=== PATIENT | female | born 1945 | race Two or more races ===

== ENCOUNTER 2022-02-15 07:33 | Inpatient (IN) | payer MEDICARE, MEDICAID ==
[~2022-02-15] VITALS: Ht 162.6 cm; Wt 90.5 kg
[2022-02-15] MEDS ORDERED: ONDANSETRON HCL 4 MG/2 ML VIAL IV ONE (09:00)
[2022-02-15] MEDS ORDERED: MORPHINE SULFATE INJ 2 MG/ml SYRG IV ONE (09:00)
[2022-02-15 10:04] LABS: Basophils # (auto) 0 10 ^3/uL (0-0.2); Basophils % (auto) 0.4 % (0.0-2.0); Eosinophils # (auto) 0.1 10 ^3/uL (0-0.8); Eosinophils % (auto) 1.4 % (0.0-7.0); Hematocrit 42.5 % (36.0-46.0); Hemoglobin 13.8 g/dL (12.2-16.2); Lymphocytes # (auto) 1.5 10 ^3/uL (0.4-5.4); Lymphocytes % (auto) 19.9 % (10.0-50.0); Mean Corpuscular Hemoglobin 28.5 pg (28.0-32.0); Mean Corpuscular Hgb Conc. 32.4 g/dL (32.0-36.0); Monocytes # (auto) 0.6 10 ^3/uL (0-1.3); Monocytes % (auto) 7.8 % (0.0-12.0); Neutrophils # (auto) 5.2 10 ^3/uL (1.6-8.6); Neutrophils % (auto) 70.5 % (37.0-80.0); Red Blood Cells 4.83 10^6/uL (4.0-5.20); Red Cell Distribution Width 15.3 % (11.8-14.3); White Blood Cell 7.4 10^3/uL (4.4-10.8)
[2022-02-15 10:11] LABS: Albumin 3.6 g/dL (3.4-5.0); Calcium 8.3 mg/dL (8.5-10.1); Potassium 4.8 mmol/L (3.5-5.1)
[2022-02-15 10:14] LABS: BUN/Creatinine Ratio 24.7; Bilirubin, Total 0.3 mg/dL (0.2-1.0); Total Protein 6.3 g/dL (6.4-8.2)
[2022-02-15 10:17] LABS: INR 0.9 (0.9-1.15); Partial Thromboplastin Time 25.7 sec (24.6-33.4)
[2022-02-15] MEDS ORDERED: ONDANSETRON HCL 4 MG/2 ML VIAL ONE (10:19)
[2022-02-15] MEDS ORDERED: MORPHINE SULFATE INJ 2 MG/ml SYRG ONE (10:19)
[2022-02-15 14:22] LABS: Urine Bacteria NONE SEEN /hpf (None Seen); Urine Blood 1+ /uL (Negative); Urine Mucus FEW (None Seen); Urine Specific Gravity 1.016 (1.001-1.035); Urine WBC 1 /hpf (0 - 5)
[2022-02-15] MEDS ORDERED: METO-289 PO (15:16)
[2022-02-15] MEDS ORDERED: AMIT25TA12 PO (15:16)
[2022-02-15] MEDS ORDERED: ACET300T4 PO (15:16)
[2022-02-15] MEDS ORDERED: HYDR-4188 PO (15:16)
[2022-02-15] MEDS ORDERED: LEVO50TA7 PO (15:16)
[2022-02-15] MEDS ORDERED: ALEN70TA74 PO (15:16)
[2022-02-15] MEDS ORDERED: AMLO-489 PO (15:16)
[2022-02-15] MEDS ORDERED: CHOL20007 PO (15:16)
[2022-02-15] MEDS ORDERED: FLUO-125 PO (15:16)
[2022-02-15] MEDS ORDERED: LEFL20TA PO (15:16)
[2022-02-15] MEDS ORDERED: ASPI-543 PO (15:16)
[2022-02-15] MEDS ORDERED: DOCUSATE SOD 100 MG CAP PO PRN (15:30)
[2022-02-15] MEDS: SODIUM CHLORIDE 0.9% 1,000 ML IV SCH (16:11)
[2022-02-15] MEDS: MORPHINE SULFATE INJ 2 MG/ml SYRG IV PRN ×2 (16:38→23:28)
[2022-02-15] MEDS: ONDANSETRON HCL 4 MG/2 ML VIAL IV PRN ×2 (16:38→23:25)
[2022-02-15 18:57] LABS: Cholesterol 184 mg/dL (< 200)
[2022-02-15 18:59] LABS: HDL Cholesterol 63 mg/dL (40-59); LDL Cholesterol 106 mg/dL (< 100); Triglycerides 126 mg/dL (< 150)
[2022-02-16 04:48] LABS: Basophils # (auto) 0.1 10 ^3/uL (0-0.2); Basophils % (auto) 0.9 % (0.0-2.0); Eosinophils # (auto) 0.1 10 ^3/uL (0-0.8); Hematocrit 40.1 % (36.0-46.0); Hemoglobin 13.4 g/dL (12.2-16.2); Lymphocytes # (auto) 1.4 10 ^3/uL (0.4-5.4); Lymphocytes % (auto) 19.1 % (10.0-50.0); Mean Corpuscular Hemoglobin 29.3 pg (28.0-32.0); Mean Corpuscular Hgb Conc. 33.4 g/dL (32.0-36.0); Mean Corpuscular Volume 87.8 fL (80.0-100.0); Monocytes # (auto) 0.6 10 ^3/uL (0-1.3); Monocytes % (auto) 8.1 % (0.0-12.0); Neutrophils % (auto) 70.9 % (37.0-80.0); Nucleated Red Blood Cells % 0.1 %; Red Blood Cells 4.57 10^6/uL (4.0-5.20); Red Cell Distribution Width 14.8 % (11.8-14.3); White Blood Cell 7.1 10^3/uL (4.4-10.8)
[2022-02-16 05:14] LABS: Potassium 4.3 mmol/L (3.5-5.1)
[2022-02-16 05:19] LABS: Albumin 3.5 g/dL (3.4-5.0); BUN/Creatinine Ratio 31.5; Bilirubin, Total 0.6 mg/dL (0.2-1.0); Calcium 7.5 mg/dL (8.5-10.1); Magnesium 2.3 mg/dL (1.6-2.6); Phosphorus 2.6 mg/dL (2.5-4.90); Total Protein 6.2 g/dL (6.4-8.2)
[2022-02-16] MEDS ORDERED: MORPHINE SULFATE 4 MG/ML SYR/VIAL ONE (05:37)
[2022-02-16] MEDS: ONDANSETRON HCL 4 MG/2 ML VIAL IV PRN ×3 (05:38→17:15)
[2022-02-16] MEDS: MORPHINE SULFATE INJ 2 MG/ml SYRG IV PRN ×3 (05:42→17:15)
[2022-02-16] MEDS: SODIUM CHLORIDE 0.9% 1,000 ML IV SCH (08:18)
[2022-02-16] MEDS ORDERED: PANTOPRAZOLE 40 MG TAB PO SCH (10:00)
[2022-02-16] MEDS ORDERED: ENOXAPARIN SOD 40 MG/0.4 ML SYRINGE SC SCH (10:00)
[2022-02-16] MEDS: KETOROLAC TROMETH 30 MG/ML 1ML VIAL IV PRN ×2 (13:33→22:12)
[2022-02-16] MEDS: hydrOXYchloroQUINE SULFATE 200 MG TAB PO SCH (18:00)
[2022-02-16 22:00] VITALS: BP 122/63
[2022-02-16] MEDS: AMITRIPTYLINE HCL 25 MG TAB PO SCH (22:12)
[2022-02-17] VITALS (14 sets, daily range): BP systolic 106–145; BP diastolic 63–111
[2022-02-17] MEDS: SODIUM CHLORIDE 0.9% 1,000 ML IV SCH (02:06)
[2022-02-17] MEDS: KETOROLAC TROMETH 30 MG/ML 1ML VIAL IV PRN (05:08)
[2022-02-17 06:35] LABS: Basophils # (auto) 0 10 ^3/uL (0-0.2); Basophils % (auto) 0.4 % (0.0-2.0); Eosinophils # (auto) 0.1 10 ^3/uL (0-0.8); Eosinophils % (auto) 1.5 % (0.0-7.0); Hematocrit 38.4 % (36.0-46.0); Hemoglobin 12.7 g/dL (12.2-16.2); Lymphocytes # (auto) 1.1 10 ^3/uL (0.4-5.4); Lymphocytes % (auto) 17.6 % (10.0-50.0); Mean Corpuscular Hemoglobin 29.2 pg (28.0-32.0); Mean Corpuscular Volume 88.4 fL (80.0-100.0); Monocytes # (auto) 0.6 10 ^3/uL (0-1.3); Monocytes % (auto) 10.4 % (0.0-12.0); Neutrophils # (auto) 4.4 10 ^3/uL (1.6-8.6); Neutrophils % (auto) 70.1 % (37.0-80.0); Red Blood Cells 4.34 10^6/uL (4.0-5.20); Red Cell Distribution Width 15.1 % (11.8-14.3); White Blood Cell 6.2 10^3/uL (4.4-10.8)
[2022-02-17] MEDS: LEVOTHYROXINE SODIUM 50 MCG TAB PO SCH (06:43)
[2022-02-17 07:01] LABS: Potassium 4.1 mmol/L (3.5-5.1)
[2022-02-17 07:09] LABS: BUN/Creatinine Ratio 31.9; Calcium 7.1 mg/dL (8.5-10.1)
[2022-02-17] MEDS ORDERED: ceFAZolin 1GM/50ML 100 ML IV ONE (07:42)
[2022-02-17] MEDS ORDERED: fentaNYL CITRATE 100 MCG/2 ML VL ONE (07:47)
[2022-02-17] MEDS ORDERED: MIDAZOLAM HCL 2MG/2ML 2ml VIAL (1mg/ml) ONE (07:47)
[2022-02-17] MEDS ORDERED: PROPOFOL 10 MG/ML 20 ML IV ONE (07:49)
[2022-02-17] MEDS ORDERED: MORPHINE SULF PF 5 MG/10 ML VIAL ONE (07:49)
[2022-02-17] MEDS ORDERED: DexAMETHasone SOD PHOS 10MG/1ML VIAL INJ ONE (07:49)
[2022-02-17] MEDS ORDERED: TETRACAINE 1% INJ 2 ML VIAL IJ ONE (07:53)
[2022-02-17] MEDS ORDERED: BUPIVACAINE W/ EPINEPH 0.5% INJ 50ML MDV IJ ONE (07:53)
[2022-02-17] MEDS ORDERED: ASPirin-EC 81 mg tab PO SCH (10:00)
[2022-02-17] MEDS: FLUoxetine HCL 20 MG CAP PO SCH (10:00)
[2022-02-17] MEDS: METOPROLOL SUCCINATE XL 50 MG TAB PO SCH (10:00)
[2022-02-17] MEDS ORDERED: NALBUPHINE HCL 10 MG/1ml INJECTION SUBCUT ONE (10:15)
[2022-02-17] MEDS ORDERED: DexAMETHasone SOD PHOS 10MG/1ML VIAL INJ IV PRN (10:15)
[2022-02-17] MEDS ORDERED: NALOXONE HCL 0.4 MG/ML VIAL IV PRN (10:15)
[2022-02-17] MEDS ORDERED: MIDAZOLAM HCL 2MG/2ML 2ml VIAL (1mg/ml) IV PRN (10:15)
[2022-02-17] MEDS ORDERED: HYDROmorphone HCL 2 MG/ML VL/or syr IV PRN (10:15)
[2022-02-17] MEDS ORDERED: ePHEDrine SULFATE 50 MG/ML AMP IV PRN (10:15)
[2022-02-17] MEDS ORDERED: LABETALOL HCL 5 MG/ML 4ML SYRINGE IV PRN (10:15)
[2022-02-17] MEDS ORDERED: ONDANSETRON HCL 4 MG/2 ML VIAL IV PRN ×2 (10:15)
[2022-02-17] MEDS: LACTATED RINGER'S 1,000 ML IV SCH ×2 (13:02→20:15)
[2022-02-17] MEDS: amLODIPine BESYLATE 5 MG TAB PO SCH (13:20)
[2022-02-17] MEDS ORDERED: PHENYLEPHRINE HCL 10 MG/ML VL IV ONE (14:58)
[2022-02-17] MEDS: ceFAZolin 2 GM in D5W 5% 100 ML IV SCH ×2 (15:19→22:40)
[2022-02-17] MEDS: SODIUM CHLOR 0.9% PF (SALINE LOCK) 10ML VIAL/SYR IV SCH ×2 (15:20→22:39)
[2022-02-17] MEDS: hydrOXYchloroQUINE SULFATE 200 MG TAB PO SCH (19:04)
[2022-02-17] MEDS: POLYETHYLENE GLYCOL 17 GM PWDR PO PRN (19:05)
[2022-02-17] MEDS: AMITRIPTYLINE HCL 25 MG TAB PO SCH (22:40)
[2022-02-18] VITALS (15 sets, daily range): BP systolic 119–154; BP diastolic 61–92
[2022-02-18 06:05] LABS: Calcium 7.3 mg/dL (8.5-10.1); Potassium 4.1 mmol/L (3.5-5.1)
[2022-02-18 06:08] LABS: BUN/Creatinine Ratio 29.3
[2022-02-18] MEDS: SODIUM CHLOR 0.9% PF (SALINE LOCK) 10ML VIAL/SYR IV SCH ×3 (06:18→21:35)
[2022-02-18] MEDS: ACETAMINOPHEN 325 MG TAB PO PRN ×2 (06:19→17:10)
[2022-02-18] MEDS: LEVOTHYROXINE SODIUM 50 MCG TAB PO SCH (06:20)
[2022-02-18 06:26] LABS: Basophils # (auto) 0 10 ^3/uL (0-0.2); Basophils % (auto) 0.4 % (0.0-2.0); Eosinophils # (auto) 0 10 ^3/uL (0-0.8); Eosinophils % (auto) 0.4 % (0.0-7.0); Hematocrit 33.6 % (36.0-46.0); Lymphocytes # (auto) 0.6 10 ^3/uL (0.4-5.4); Mean Corpuscular Hemoglobin 28.8 pg (28.0-32.0); Mean Corpuscular Hgb Conc. 32.6 g/dL (32.0-36.0); Mean Corpuscular Volume 88.3 fL (80.0-100.0); Monocytes # (auto) 0.5 10 ^3/uL (0-1.3); Neutrophils # (auto) 5.5 10 ^3/uL (1.6-8.6); Neutrophils % (auto) 82.2 % (37.0-80.0); Red Cell Distribution Width 14.7 % (11.8-14.3); White Blood Cell 6.7 10^3/uL (4.4-10.8)
[2022-02-18] MEDS: LACTATED RINGER'S 1,000 ML IV SCH (06:29)
[2022-02-18] MEDS: KETOROLAC TROMETH 30 MG/ML 1ML VIAL IV PRN (07:26)
[2022-02-18] MEDS: METOPROLOL SUCCINATE XL 50 MG TAB PO SCH (09:39)
[2022-02-18] MEDS: FLUoxetine HCL 20 MG CAP PO SCH (09:39)
[2022-02-18] MEDS: HYDROcodone-ACET 10/325MG TAB PO PRN ×2 (09:45→18:48)
[2022-02-18] MEDS: amLODIPine BESYLATE 5 MG TAB PO SCH (09:45)
[2022-02-18] MEDS: ENOXAPARIN SOD 40 MG/0.4 ML SYRINGE SC SCH (09:46)
[2022-02-18] MEDS: hydrOXYchloroQUINE SULFATE 200 MG TAB PO SCH (17:10)
[2022-02-18] MEDS: AMITRIPTYLINE HCL 25 MG TAB PO SCH (21:36)
[2022-02-19 05:00] VITALS: BP 168/83
[2022-02-19 05:27] LABS: Basophils # (auto) 0 10 ^3/uL (0-0.2); Basophils % (auto) 0.5 % (0.0-2.0); Eosinophils # (auto) 0.1 10 ^3/uL (0-0.8); Eosinophils % (auto) 2.2 % (0.0-7.0); Hemoglobin 10.7 g/dL (12.2-16.2); Lymphocytes # (auto) 0.7 10 ^3/uL (0.4-5.4); Lymphocytes % (auto) 14.7 % (10.0-50.0); Mean Corpuscular Hemoglobin 29.3 pg (28.0-32.0); Mean Corpuscular Hgb Conc. 33.3 g/dL (32.0-36.0); Monocytes # (auto) 0.5 10 ^3/uL (0-1.3); Monocytes % (auto) 10.2 % (0.0-12.0); Neutrophils # (auto) 3.3 10 ^3/uL (1.6-8.6); Neutrophils % (auto) 72.4 % (37.0-80.0); Nucleated Red Blood Cells % 0.1 %; Red Blood Cells 3.64 10^6/uL (4.0-5.20); White Blood Cell 4.6 10^3/uL (4.4-10.8)
[2022-02-19] MEDS: HYDROcodone-ACET 10/325MG TAB PO PRN ×3 (05:30→21:21)
[2022-02-19 05:49] LABS: BUN/Creatinine Ratio 24.5; Calcium 7.6 mg/dL (8.5-10.1); Magnesium 2.2 mg/dL (1.6-2.6); Potassium 4.4 mmol/L (3.5-5.1)
[2022-02-19] MEDS: SODIUM CHLOR 0.9% PF (SALINE LOCK) 10ML VIAL/SYR IV SCH ×3 (06:11→22:32)
[2022-02-19] MEDS: LEVOTHYROXINE SODIUM 50 MCG TAB PO SCH (06:16)
[2022-02-19 08:30] VITALS: BP 135/72
[2022-02-19] MEDS: ENOXAPARIN SOD 40 MG/0.4 ML SYRINGE SC SCH (09:15)
[2022-02-19] MEDS: METOPROLOL SUCCINATE XL 50 MG TAB PO SCH (09:15)
[2022-02-19] MEDS: amLODIPine BESYLATE 5 MG TAB PO SCH (09:15)
[2022-02-19] MEDS: POLYETHYLENE GLYCOL 17 GM PWDR PO PRN (09:15)
[2022-02-19] MEDS: FLUoxetine HCL 20 MG CAP PO SCH (09:15)
[2022-02-19 13:05] VITALS: BP 164/87
[2022-02-19] MEDS ORDERED: SENNA 8.6 MG TAB PO ONE (13:15)
[2022-02-19] MEDS ORDERED: hydrALAZINE HCL 25 MG TAB PO PRN (13:15)
[2022-02-19] MEDS ORDERED: CEFTRIAXONE SODIUM 2 GM in D5W 5% 50 ML IV ONE (15:30)
[2022-02-19 17:03] VITALS: BP 130/69
[2022-02-19] MEDS: hydrOXYchloroQUINE SULFATE 200 MG TAB PO SCH (17:32)
[2022-02-19] MEDS ORDERED: SENNA 8.6 MG TAB PO PRN (21:00)
[2022-02-19] MEDS: AMITRIPTYLINE HCL 25 MG TAB PO SCH (21:19)
[2022-02-19 22:08] VITALS: BP 152/65
[2022-02-20 05:12] VITALS: BP 113/68
[2022-02-20] MEDS: SODIUM CHLOR 0.9% PF (SALINE LOCK) 10ML VIAL/SYR IV SCH ×2 (06:14→11:16)
[2022-02-20] MEDS: LEVOTHYROXINE SODIUM 50 MCG TAB PO SCH (06:14)
[2022-02-20 06:38] LABS: Urine Bacteria NONE SEEN /hpf (None Seen); Urine Blood Negative /uL (Negative); Urine Specific Gravity 1.018 (1.001-1.035); Urine WBC 5 /hpf (0 - 5)
[2022-02-20] MEDS ORDERED: ERGOCALCIFEROL 50,000 UNIT(1.25MG) CAP PO SCH (07:15)
[2022-02-20 09:00] VITALS: BP 129/71
[2022-02-20] MEDS ORDERED: cefTRIAXone 1GM/50ML D5W 50 ML IV SCH (09:00)
[2022-02-20] MEDS: amLODIPine BESYLATE 5 MG TAB PO SCH (10:22)
[2022-02-20] MEDS: METOPROLOL SUCCINATE XL 50 MG TAB PO SCH (10:22)
[2022-02-20] MEDS: ENOXAPARIN SOD 40 MG/0.4 ML SYRINGE SC SCH (10:22)
[2022-02-20] MEDS: KETOROLAC TROMETH 30 MG/ML 1ML VIAL IV PRN (10:22)
[2022-02-20] MEDS: FLUoxetine HCL 20 MG CAP PO SCH (10:23)
[2022-02-20 13:00] VITALS: BP 107/67
[2022-02-20 17:21] VITALS: BP 117/67
[2022-02-20] MEDS: hydrOXYchloroQUINE SULFATE 200 MG TAB PO SCH (17:27)
== END 2022-02-20 19:40 | DRG 481 ==
LOC: EDBD 07:33 → ER 07:33 → TELE 15:39 → TELE-EAST 02-16 21:02 → EAST 02-18 12:10 → TELE-EAST 02-18 16:23
PROVIDERS: ADMIT Nurse Practitioner Family; ATTEND Internal Medicine
PROC: 0QS736Z Reposition Left Upper Femur with Intramedullary Internal Fixation Device, Percutaneous Approach (ICD-10-PCS; principal; 2022-02-17 08:12)
PROC: 05H933Z Insertion of Infusion Device into Right Brachial Vein, Percutaneous Approach (ICD-10-PCS; 2022-02-20)
PROC: B54MZZA Ultrasonography of Right Upper Extremity Veins, Guidance (ICD-10-PCS; 2022-02-20)
DX: S72.142A Displaced intertrochanteric fracture of left femur, initial encounter for closed fracture (principal); N39.0 Urinary tract infection, site not specified; R78.81 Bacteremia; E03.9 Hypothyroidism, unspecified; E78.5 Hyperlipidemia, unspecified; F03.90 Unspecified dementia, unspecified severity, without behavioral disturbance, psychotic disturbance, mood disturbance, and anxiety; I10 Essential (primary) hypertension; F32.A Depression, unspecified; W18.39XA Other fall on same level, initial encounter; E66.9 Obesity, unspecified; Z20.822 Contact with and (suspected) exposure to COVID-19; M06.9 Rheumatoid arthritis, unspecified; M79.7 Fibromyalgia; M81.0 Age-related osteoporosis without current pathological fracture; Z90.49 Acquired absence of other specified parts of digestive tract; Z90.710 Acquired absence of both cervix and uterus; Z79.899 Other long term (current) drug therapy; Z68.32 Body mass index [BMI] 32.0-32.9, adult; Y93.89 Activity, other specified; Y92.092 Bedroom in other non-institutional residence as the place of occurrence of the external cause; Y99.8 Other external cause status
CPT/HCPCS: 36415; 71045; 72170; 72192; 73502; 76000; 80048; 80053; 80061; 81001; 82306; 82962; 83605; 83735; 84100; 84443; 84484; 85025; 85610; 85730; 86850; 86900; 86901; 87040; 87077; 87086; 87186; 87804; 93005; 96361; 96374; 96375; 97110; 97116; 97530; A4565; G0378; J0690; J0696; J1100; J1885; J2250; J2405; J2704; J7060